=== PATIENT | male | born 1975 | race Caucasian/White ===

== ENCOUNTER 2022-06-26 11:05 | Emergency (ER) | payer OTHER, SELFPAY ==
[2022-06-26 11:15] VITALS: BP 124/74; PULSE 80; RESP 17; TEMP 36.4; O2SAT 98
[2022-06-26 11:45] LABS: Bilirubin Negative (Negative); Blood Negative (Negative); Clarity Clear (Clear); Glucose Negative (Negative); Ketones Negative (Negative); Leukocyte Esterase Negative (Negative); Nitrite Negative (Negative); pH 7.5 (5-8)
--- NOTE | 2022-06-26 12:12 | ED.GENADUL_ITS ---
Discharge Plan Disposition Patient Disposition: Home Condition: Improving Discharge Details Clinical Impression: Encounter for monitoring Suboxone maintenance therapy, Withdrawal complaint Primary Care Provider: Maya,Local ED Provider: Kayode Mazariegos Home Meds and New Rx's Prescriptions: Continued buprenorphine-naloxone 8-2 mg Tablet, Sublingual 1 tab SUBLINGUAL TID Discharge Instructions Additional Instructions: You have been provided with a 4 mg dose of Suboxone. I spoke with the [facility] clinic and they will see you tomorrow, please go to their office, they open at 5:30 AM. Please follow the instructions given to you by the legal recovery specialist. Watch for new or worsening symptoms and return to the ER for any concerns. Discharge Data Discharge Date/Time-TO BE ENTERED AT DEPARTURE: 06/26/22 13:33 Medical Decision Making 46-year-old gentleman who is visiting from [place] presents for concern of withdrawing from Suboxone as he has not had his prescription in the last 2 days. He is not helpful with attempting to confirm his dose through his provider in [place]. Tells me that he believes the doctor's name is Krystyna Up in the [place] but cannot give me any additional information, phone number, etc. He states he doubts I will be able to get a hold of her. Clinically he appears well, nontoxic, no overt signs of withdrawal. He reports feeling anxious, nauseous, simply not feeling well. He reports taking 8 mg 3 times daily. Given I am unable to confirm his dose I am hesitant to provide any here in the ER as he appears well. We did request the legal recovery specialist to come talk with the patient. I was then able to contact the [facility] program and they will be happy to reevaluate him tomorrow in the office. Plan to provide 4 milligram dose of Suboxone now to hold him over until tomorrow morning. Patient is grateful. He continues to appear well, nontoxic, witnessed ambulating to the restroom. Standard discharge and return precautions were provided. Patient understands, is agreeable to this plan, and has no additional questions or concerns upon discharge. This documentation was generated using [employer] system, please disregard any oddities of phrase or misspellings. Lab Data Lab results reviewed: Yes I reviewed the patient's lab results. Labs: Laboratory Tests Range/Units 06/26/22 06/26/22 11:09 11:27 Urine Color (Yellow) Yellow Urine Clarity (Clear) Clear Urine pH (5-8) 7.5 Ur Specific [place] (1.005-1.025) 1.020 Urine Protein (Negative) mg/dL Negative Urine Ketones (Negative) mg/dL Negative Urine Blood (Negative) Negative Urine Nitrite (Negative) Negative Urine Bilirubin (Negative) Negative Urine Urobilinogen (Up TO 0.2) EU/dL 2.0 H Ur Leukocyte Esterase (Negative) Negative Urine Glucose (Negative) mg/dL Negative Urine Opiates Screen (Negative) Negative Urine Methadone Screen (Negative) Negative Ur Barbiturates Screen (Negative) Negative Ur Tricyclics Screen (Negative) Negative Ur Amphetamines Screen (Negative) Negative U Benzodiazepines Scrn (Negative) Negative Urine Cocaine Screen (Negative) Negative Ur THC Screen (Negative) Negative Sign Out No HPI General Mode of arrival: EMS . Date/Time Provider Initiated Documentation: 06/26/22 11:08 . Limitations to Documentation: no limitations . Information obtained by: patient and EMS . HPI Narrative: This is a 46-year-old gentleman who presents via EMS reporting withdrawal from Suboxone. Patient states that he is from [place], here until [place], and did not get additional Suboxone before he left. He states his last dose was 2 days ago. He reports feeling slightly anxious, nausea, body aches, withdrawal symptoms. He denies any fever, chest pain, shortness of breath, headache, vomiting, change in bowel or bladder function, numbness, tingling, weakness, skin rash. He denies any other concerns or complaints. He states that he is from [facility], he believes that the doctor that he sees is Krystyna Up, and reports that she is likely on vacation and we will not be able to get a hold of her because [place]. He tells me he is on Suboxone 8 mg 3 times daily. He reports occasional alcohol use but none today. Denies additional drug use. Related Data Home Medications Medication Instructions Recorded Confirmed buprenorphine 8 mg-naloxone 2 mg 1 tab sublingual TID 06/26/22 06/26/22 sublingual tablet Allergies Allergy/AdvReac Type Severity Reaction Status Date / Time Penicillins Allergy Mild Hives Unverified 06/26/22 11:23 General Stated Complaint: DrugWithdr/MAT PAMELA: 3 Review of Systems Constitutional Constitutional: Denies fever(s) and Denies weakness Cardiovascular Cardiovascular: Denies chest pain and Denies dyspnea Respiratory Respiratory: Denies cough and Denies dyspnea Gastrointestinal Gastrointestinal: Denies abdominal pain, Reports nausea and Denies vomiting Musculoskeletal Musculoskeletal: Denies back pain Integumentary/Breasts Skin/Breast: Denies rash Neurologic Neurologic: Denies weakness Psychiatric Psychiatric: Reports anxiety PFSH All Active Problems (Updated 06/26/22 @ 13:06 by HERNANDO Tsang) Encounter for monitoring Suboxone maintenance therapy (Acute) Withdrawal complaint (Acute) Social History Smoking/Tobacco Use Status: Current every day Tobacco Type: cigarettes Smoking risk assessment performed?: Yes Alcohol Intake: current Alcohol Intake frequency: a few times a week Alcohol type: hard liquor Drug use: Never Substance use type: does not use Details: on suboxone Do you feel safe at home: Yes Exam Const General: cooperative, healthy appearing, comfortable and no acute distress Orientation: alert, awake and oriented x3 HENMT Head: normal to inspection, normocephalic and atraumatic Face and sinus: normal facial exam Mouth: moist mucous membranes Eyes General: appearance normal, both eyes and all related structures Conjunctivae: conjunctivae normal Neck Neck: normal visual inspection, full ROM, no meningeal signs, trachea midline and supple Resp Effort & Inspection: normal respiratory effort and able to speak in complete sentences Auscultation: clear to auscultation bilaterally Cardio Rate: regular rate Rhythm: regular rhythm GI Palpation: soft, not firm, no guarding, no pulsatile masses and nontender Back/Spine/Pelvis Back: No back tenderness Skin General skin exam: no rashes or lesions noted Neuro General: patient alert, patient awake, patient oriented x3, moves all extremities and no focal motor deficits Cognition: normal cognition Speech: speech normal Gait: normal gait Motor: muscle tone normal throughout Sensory Exam: no sensory deficits noted Extrem General: normal to inspection, full ROM and capillary refill normal Psych Appearance: grossly normal Mental Status: mental status grossly normal Course Vital Signs Vital signs: Vital Signs Temperature 36.4 C 06/26/22 11:15 Pulse 80 06/26/22 11:15 Respiratory Rate 17 06/26/22 11:15 Blood Pressure 124/74 06/26/22 11:15 Pulse Oximetry 98 06/26/22 11:15 Temperature 36.4 C 06/26/22 11:15 Temperature Source Oral 06/26/22 11:15 Pulse 80 06/26/22 11:15 Respiratory Rate 17 06/26/22 11:15 Respiratory Effort Non-Labored 06/26/22 11:17 Respiratory Pattern Normal 06/26/22 11:17 Blood Pressure 124/74 06/26/22 11:15 Blood Pressure Position Sitting 06/26/22 11:15 Pulse Oximetry 98 06/26/22 11:15 Oxygen Delivery Method Room Air 06/26/22 11:15 Oxygen Flow Rate 0 06/26/22 11:15 Pain Level 7 06/26/22 11:15 Lab/Test Results Lab/Test Results: Laboratory Tests Range/Units 06/26/22 11:09 Urine Color (Yellow) Yellow Urine Clarity (Clear) Clear Urine pH (5-8) 7.5 Ur Specific [place] (1.005-1.025) 1.020 Urine Protein (Negative) mg/dL Negative Urine Ketones (Negative) mg/dL Negative Urine Blood (Negative) Negative Urine Nitrite (Negative) Negative Urine Bilirubin (Negative) Negative Urine Urobilinogen (Up TO 0.2) EU/dL 2.0 H Ur Leukocyte Esterase (Negative) Negative Urine Glucose (Negative) mg/dL Negative PAWSS Have you Been Recently Intoxicated or Drunk Within the Last 30 days?: No Have you Ever Experienced Previous Episodes of Alcohol Withdrawal?: No Have you ever Experienced Withdrawal Seizures?: No Have you ever Experienced Delirium Tremens(DT)s?: No Have you ever undergone Alcohol Rehabilitation Treatment (i.e, inpt ot outpatient treatment programs)?: No Have you ever Experienced Blackouts?: No Have you ever Combined Alcohol with other Downers within the last 90 days?: No Have you ever Combined Alcohol with any other Substance of Abuse during the last 90 days?: No Result: 0
[2022-06-26 12:29] LABS: *AMPHETAMINES SCREEN URINE Negative (Negative); *BARBITURATES SCREEN URINE Negative (Negative); *BENZODIAZEPINES SCREEN URINE Negative (Negative); Cannabinoids THC Negative (Negative); Cocaine Screen,Urine Negative (Negative); METHADONE URINE SCREEN Negative (Negative); OPIATES URINE SCREEN Negative (Negative); Tricyclic Antidepressants Negative (Negative)
[2022-06-26] MEDS: Buprenorphine/Naloxone 4 mg/1 mg FILM 1 EACH SL (13:16)
== END 2022-06-26 13:33 | disposition home or self-care (01) ==
PROVIDERS: Emergency Provider Physician Assistant
DX: F11.23 Opioid dependence with withdrawal (principal)
CPT/HCPCS: 80307; 99283; 81003